=== PATIENT | female | born 1950 ===

== ENCOUNTER 2017-07-03 18:47 | Emergency (ER) | payer MEDICARE ==
[2017-07-03 18:57] VITALS: BMI 32.9
[2017-07-03 19:51] LABS: BASO # 0.1 K/uL (0.0-0.2); BASO % 1.3 % (0.0-2.0); EOS # 0.1 K/uL (0.0-0.7); EOS % 0.8 % (0.0-4.0); HEMATOCRIT 35.1 % (34.0-47.0); LYMPH # 2.9 K/uL (1.0-4.3); LYMPH % 33.8 % (20.0-40.0); MEAN CELL VOLUME 86.4 fL (81.0-99.0); MEAN CORPUSCULAR HEMOGLOBIN 29.1 pg (27.0-31.0); MEAN CORPUSCULAR HGB CONC 33.7 g/dL (33.0-37.0); MEAN PLATELET VOLUME 6.7 fL (7.2-11.7); MONO # 0.6 K/uL (0.0-0.8); MONO % 7.2 % (0.0-10.0); RED CELL DISTRIBUTION WIDTH 14.9 % (11.5-14.5); WHITE BLOOD COUNT 8.6 K/uL (4.8-10.8)
[2017-07-03 20:03] LABS: ALB/GLOB RATIO 0.9 (1.0-2.1); ALKALINE PHOSPHATASE 99 U/L (38-126); ALT/SGPT 23 U/L (9-52); AST/SGOT 24 U/L (14-36); BILIRUBIN,TOTAL 0.5 mg/dL (0.2-1.3); BLOOD UREA NITROGEN 16 mg/dL (7-17); CALCIUM 9.2 mg/dl (8.6-10.4); CARBON DIOXIDE 26 mmol/L (22-30); CHLORIDE 96 mmol/L (98-107); GFR AFRICAN-AMERICAN > 60; GLUCOSE,RANDOM 122 mg/dL (65-105); POTASSIUM 4.7 mmol/L (3.6-5.2); SODIUM 136 mmol/L (132-148); TOTAL PROTEIN 8.9 g/dL (6.3-8.3)
--- NOTE | 2017-07-03 20:07 | C.PDOC ---
History Of Present Illness 66 year old female who presents to the ER with a complaint of SOB at home earlier today. At the time patient noticed at her blood pressure was high which prompted her to come to the ER. Patient states her breathing has improved now; denies chest pain or palpitations. Chief Complaint (Nursing): Shortness Of Breath History Per: Patient History/Exam Limitations: no limitations Onset/Duration Of Symptoms: Hrs Current Symptoms Are (Timing): Still Present Initiating Event: Other (Not known) Associated Symptoms: denies: Fever, Chills, Chest Pain Recent travel outside of the [place]: No Past Medical History Reviewed: Historical Data, Nursing Documentation, Vital Signs Vital Signs: Last Vital Signs Temp 97.5 F L 07/03/17 18:57 Pulse 65 07/03/17 19:43 Resp 19 07/03/17 19:37 BP 159/70 H 07/03/17 19:43 Pulse Ox 97 07/03/17 21:47 - Medical History PMH: HTN, Hypercholesterolemia, Hyperthyroidism, Hypothyroidism Surgical History: Coronary Stent (2010) - Death by [facility] Procedures ENDOSC POLYPECTOMY OF LG INTEST (06/13/15) Family History: States: Unknown Family Hx - Social History Hx Alcohol Use: No Hx Substance Use: No - Immunization History Hx Tetanus Toxoid Vaccination: No Hx Influenza Vaccination: No Hx Pneumococcal Vaccination: No Review Of Systems Constitutional: Negative for: Fever, Chills Cardiovascular: Negative for: Chest Pain, Palpitations Respiratory: Positive for: Shortness of Breath Gastrointestinal: Negative for: Nausea, Vomiting Physical Exam - Physical Exam Appears: Non-toxic, No Acute Distress Skin: Normal Color, Warm, Dry Head: Atraumatic, Normacephalic Oral Mucosa: Moist Neck: Normal, Supple Chest: Symmetrical, No Tenderness Cardiovascular: Rhythm Regular, No Murmur Respiratory: Normal Breath Sounds, No Rales, No Rhonchi, No Wheezing Gastrointestinal/Abdominal: Soft, No Tenderness Extremity: Normal ROM (x4), No Pedal Edema Neurological/Psych: Oriented x3, Normal Speech, Normal Cognition ED Course And Treatment - Laboratory Results Result Diagrams: 07/03/17 19:48 07/03/17 19:48 ECG: Interpreted By Me, Viewed By Me ECG Rhythm: Sinus Rhythm ECG Interpretation: Normal, No Acute Changes Interpretation Of ECG: NSR, normal tracings Rate From EC O2 Sat by Pulse Oximetry: 97 (Room air) Pulse Ox Interpretation: Normal - Radiology CXR: Interpreted by Me CXR Interpretation: Yes: No Acute Disease, Other (bormal chest film). No: Infiltrates, Cardiomegaly Progress Note: Blood work, EKG, and CXR ordered. Disposition Counseled Patient/Family Regarding: Diagnosis - Disposition Referrals: [facility] [Outside] Disposition: HOME/ ROUTINE Disposition Time: 21:47 Condition: STABLE Instructions: Dyspnea (ED), Hypertension (ED) Forms: [facility] (Marshallese), Gen Discharge Inst Maori Print Language: LEBANESE - POA Present On Arrival: None - Clinical Impression Clinical Impression: Dyspnea, Hypertension - Scribe Statement The provider has reviewed the documentation as recorded by the Scribemily Valencia All medical record entries made by the Moiseibemily were at my direction and personally dictated by me. I have reviewed the chart and agree that the record accurately reflects my personal performance of the history, physical exam, medical decision making, and the department course for this patient. I have also personally directed, reviewed, and agree with the discharge instructions and disposition.
[2017-07-03 22:10] VITALS: BP 168/86; PULSE 70; RESP 16; TEMP 98.9; O2SAT 98
--- NOTE | 2017-07-04 08:20 | RAD ---
HISTORY: SOB COMPARISON: No prior. TECHNIQUE: Chest PA and lateral FINDINGS: LUNGS: There are bibasilar small opacities likely atelectasis. Otherwise no significant interval change. PLEURA: No significant pleural effusion identified. No pneumothorax apparent. CARDIOVASCULAR: Normal. OSSEOUS STRUCTURES: No significant abnormalities. VISUALIZED UPPER ABDOMEN: Normal. OTHER FINDINGS: None. IMPRESSION: Bibasilar small opacities likely atelectasis. Otherwise no interval change.
--- NOTE | 2017-07-04 15:52 | CARD ---
APPROVED REPORT EKG Measurement Heart [id number] <Conclusion> Normal sinus rhythm Normal ECG
== END 2017-07-03 22:10 | disposition home or self-care (01) ==
LOC: C.ER 18:47
DX: R06.00 Dyspnea, unspecified (principal); I10 Essential (primary) hypertension

== ENCOUNTER 2018-01-01 19:21 | Emergency (ER) | payer MEDICARE ==
[2018-01-01 19:21] VITALS: BMI 32.9
[2018-01-01 19:28] VITALS: TEMP 97.8
--- NOTE | 2018-01-01 20:01 | C.PDOC ---
History Of Present Illness 67 year old female with PMHx of HTN presents to the ED for evaluation of high blood pressure. Patient states her blood pressure was at 150 systolic, patient went to see her PMD couple of days ago and was told she needed to change her medication. Patient reports she had a mild headache that has resolved since. On arrival to the ED patient's blood pressure was 115, patient denies any complaints and states she wants to be discharged. Time Seen by Provider: 01/01/18 19:42 Chief Complaint (Nursing): High Blood Pressure History Per: Patient History/Exam Limitations: no limitations Onset/Duration Of Symptoms: Hrs Current Symptoms Are (Timing): Gone Associated Symptoms: Headache Quality Of Symptoms: Asymptomatic Exacerbating Factor(s): Pos: Recent Change In Medication Recent travel outside of the [place]: No Additional History Per: Patient Past Medical History Reviewed: Historical Data, Nursing Documentation, Vital Signs Vital Signs: Last Vital Signs Temp 97.8 F 01/01/18 19:24 Pulse 82 01/01/18 20:12 Resp 18 01/01/18 20:12 BP 131/78 01/01/18 20:12 Pulse Ox 95 01/01/18 20:12 - Medical History PMH: HTN, Hypercholesterolemia, Hyperthyroidism, Hypothyroidism Denies: Chronic Kidney Disease Surgical History: Coronary Stent (2010) - [place] Procedures ENDOSC POLYPECTOMY OF LG INTEST (06/13/15) Family History: States: Unknown Family Hx - Social History Hx Alcohol Use: No Hx Substance Use: No - Immunization History Hx Tetanus Toxoid Vaccination: No Hx Influenza Vaccination: No Hx Pneumococcal Vaccination: Yes Review Of Systems Constitutional: Negative for: Fever, Chills Cardiovascular: Negative for: Chest Pain, Palpitations Respiratory: Negative for: Shortness of Breath Gastrointestinal: Negative for: Abdominal Pain Neurological: Positive for: Headache. Negative for: Weakness, Numbness Physical Exam - Physical Exam Appears: Non-toxic, No Acute Distress Skin: Normal Color, Warm, Dry Head: Atraumatic, Normacephalic Eye(s): bilateral: Normal Inspection Nose: No Discharge Oral Mucosa: Moist Neck: Normal ROM, Supple Chest: Symmetrical Cardiovascular: Rhythm Regular, No Murmur Respiratory: Normal Breath Sounds, No Rales, No Rhonchi, No Wheezing Gastrointestinal/Abdominal: Soft, No Tenderness, No Guarding, No Rebound Extremity: Normal ROM, No Tenderness, No Swelling Neurological/Psych: Oriented x3 Gait: Steady ED Course And Treatment O2 Sat by Pulse Oximetry: 100 (On RA) Pulse Ox Interpretation: Normal Medical Decision Making Medical Decision Making: asymptomatic htn. b/p now 115 systolci, no complaints declines further eval. neuro intact. Disposition - Disposition Disposition: HOME/ ROUTINE Disposition Time: 20:00 Condition: STABLE Additional Instructions: return to er with any worsening symptoms or concerns. please follow up with your doctor. Instructions: High Blood Pressure in Adults, High Blood Pressure (DC), Controlling Your Blood Pressure Through Lifestyle Forms: [employer] (Romanian) - Clinical Impression Clinical Impression: Hypertension - Scribe Statement The provider has reviewed the documentation as recorded by the Scribe Joaquim Jay All medical record entries made by the Scribe were at my direction and personally dictated by me. I have reviewed the chart and agree that the record accurately reflects my personal performance of the history, physical exam, medical decision making, and the department course for this patient. I have also personally directed, reviewed, and agree with the discharge instructions and disposition.
[2018-01-01 20:13] VITALS: BP 131/78; PULSE 82; RESP 18
[2018-01-01 23:01] VITALS: O2SAT 100
== END 2018-01-01 20:13 | disposition home or self-care (01) ==
LOC: C.ER 19:21
DX: I10 Essential (primary) hypertension (principal); E78.00 Pure hypercholesterolemia, unspecified